=== PATIENT | female | born 1970 | race Caucasian/White ===

== ENCOUNTER 2016-07-09 10:26 | Emergency (ER) | payer MEDICAID, MEDICARE ==
[2016-07-09] MEDS ORDERED: ONDANSETRON ODT 4 MG TABLET TL STA (12:39)
[2016-07-09] MEDS ORDERED: oxyCODONE 5 MG TABLET PO STA (12:39)
[2016-07-09] MEDS ORDERED: ONDANSETRON ODT 4 MG TABLET ONE (12:41)
[2016-07-09] MEDS ORDERED: ALBUTEROL NEB 2.5 MG/3 ML INH STA (12:41)
[2016-07-09] MEDS ORDERED: oxyCODONE 5 MG TABLET ONE (12:41)
[2016-07-09] MEDS ORDERED: ALBUTEROL NEB 2.5 MG/3 ML INH ONE (12:58)
[2016-07-09] MEDS ORDERED: BENZONATATE 100 MG CAPSULE PO STA (13:11)
[2016-07-09] MEDS ORDERED: BENZONATATE 100 MG CAPSULE PO ONE (13:29)
== END 2016-07-09 13:44 | disposition home or self-care (01) ==
DX: J06.9 Acute upper respiratory infection, unspecified (principal); B97.89 Other viral agents as the cause of diseases classified elsewhere; J40 Bronchitis, not specified as acute or chronic; F11.23 Opioid dependence with withdrawal; R03.0 Elevated blood-pressure reading, without diagnosis of hypertension
CPT/HCPCS: 71020; 94640; 94664; 99283; 99284; A9270; J7613; Q0162

== ENCOUNTER 2016-07-10 | Outpatient (CLI) | payer MEDICAID, MEDICARE | END 2016-07-10 12:37 | disposition critical access hospital (66) | CPT/HCPCS: A0425; A0427 ==

== ENCOUNTER 2016-07-10 12:59 | Emergency (ER) | payer MEDICARE ==
[2016-07-10] MEDS ORDERED: SODIUM CHLORIDE 0.9% 1,000 ML IV ONE ×2 (13:32→13:34)
[2016-07-10] MEDS ORDERED: PROMETHAZINE INJ 25 MG in SODIUM CHLORIDE 0.9% 50 ML IV STA (13:32)
[2016-07-10] MEDS ORDERED: MAG HYDROX/AL HYDROX/SIMETH 30 ML UDC PO STA (13:33)
[2016-07-10] MEDS ORDERED: LIDOCAINE VISCOUS 2% 15 ML UDC MM STA (13:33)
[2016-07-10] MEDS ORDERED: PROMETHAZINE 25 MG/1 ML VIAL ONE (13:34)
[2016-07-10] MEDS ORDERED: SODIUM CHLORIDE 0.9% 50 ML IV ONE (13:34)
[2016-07-10] MEDS ORDERED: MAG HYDROX/AL HYDROX/SIMETH 30 ML UDC ONE (13:50)
[2016-07-10] MEDS ORDERED: LIDOCAINE VISCOUS 2% 15 ML UDC MM ONE (13:50)
[2016-07-10] MEDS ORDERED: LORazepam 2 MG/ML SYRINGE IVP STA (13:54)
[2016-07-10] MEDS ORDERED: LORazepam 2 MG/ML SYRINGE ONE (13:54)
== END 2016-07-10 14:55 | disposition home or self-care (01) ==
DX: F15.93 Other stimulant use, unspecified with withdrawal (principal); R03.0 Elevated blood-pressure reading, without diagnosis of hypertension
CPT/HCPCS: 36415; 80053; 83690; 96365; 96375; 99284; A9270; J2060; J7040

== ENCOUNTER 2016-07-26 15:23 | Outpatient (CLI) | payer OTHER, MEDICARE | END 2016-07-26 15:24 | disposition home or self-care (01) | DX: Z01.89 Encounter for other specified special examinations (principal) ==